=== PATIENT | male | born 2000 | race Two or more races ===

== ENCOUNTER 2018-02-24 10:37 | Emergency (ER) | payer MEDICAID, OTHER ==
[~2018-02-24] VITALS: Ht 172.7 cm; Wt 106.0 kg
[2018-02-24] MEDS ORDERED: BACITRACIN ZINC OINT UDPKT TOP ONE (12:00)
[2018-02-24] MEDS ORDERED: LIDOCAINE HCL 1% 20ML VIAL (Pyxis) INJ MC ONE (12:00)
[2018-02-24] MEDS ORDERED: LIDOCAINE HCL/PF 1% 10 MG/ML 5ML VIAL ONE (12:09)
== END 2018-02-24 13:24 | disposition home or self-care (01) ==
LOC: ER 11:41
DX: L60.0 Ingrowing nail (principal); J45.909 Unspecified asthma, uncomplicated
CPT/HCPCS: 11730; 11732; 99284; J3490; Z7610

== ENCOUNTER 2018-03-10 21:33 | Emergency (ER) | payer MEDICAID ==
[~2018-03-10] VITALS: Ht 172.7 cm; Wt 100.0 kg
[2018-03-11] MEDS ORDERED: IBUPROFEN 600MG TABLET PO ONE (08:00)
[2018-03-11] MEDS ORDERED: BACITRACIN ZINC OINT UDPKT TOP ONE (08:00)
[2018-03-11 08:05] VITALS: BP 125/90
[2018-03-11] MEDS ORDERED: LIDOCAINE HCL 1% 20ML VIAL (Pyxis) INJ MC ONE (08:15)
== END 2018-03-11 09:47 | disposition home or self-care (01) ==
LOC: ER 21:33
DX: L60.0 Ingrowing nail (principal)
CPT/HCPCS: 11730; 99283; J3490

== ENCOUNTER 2018-08-11 16:41 | Emergency (ER) | payer MEDICAID ==
[~2018-08-11] VITALS: Ht 172.7 cm; Wt 100.0 kg
[2018-08-11] MEDS ORDERED: TETANUS, DIPHTHERIA, PERTUSSIS VAC/PF 0.5ML (>7YR OLD) IM ONE (18:00)
[2018-08-11] MEDS ORDERED: IBUPROFEN 800MG TABLET PO ONE (18:00)
[2018-08-11 18:22] VITALS: BP 128/67
== END 2018-08-11 18:34 | disposition home or self-care (01) ==
LOC: ER 16:41
DX: L60.0 Ingrowing nail (principal); J45.909 Unspecified asthma, uncomplicated
CPT/HCPCS: 90471; 90715; 99283

== ENCOUNTER 2018-08-18 16:24 | Emergency (ER) | payer MEDICAID ==
[~2018-08-18] VITALS: Ht 172.7 cm; Wt 100.0 kg
[2018-08-18 16:33] VITALS: BP 113/65
[2018-08-18] MEDS ORDERED: LIDOCAINE HCL/PF 1% 10 MG/ML 5ML VIAL IJ ONE (20:15)
== END 2018-08-18 21:17 | disposition home or self-care (01) ==
LOC: ER 16:24
DX: L60.0 Ingrowing nail (principal)
CPT/HCPCS: 11730; 11732; 99284; J3490; Z7610